=== PATIENT | male | born 1955 | race Caucasian/White ===

== ENCOUNTER 2020-09-06 06:59 | Inpatient (IN) ==
[2020-09-06] MEDS ORDERED: CeFAZolin Syr 2,000MG/20 ML 2,000 MG/20 ML SYRINGE IVPB ONE (07:25)
[2020-09-06] MEDS ORDERED: Ringers Solution, Lactated 1,000 ML IVC SCH ×2 (07:30→08:00)
[2020-09-06] MEDS ORDERED: *HR* Rocuronium Bromide 50 MG/5 ML VIAL ONE (07:42)
[2020-09-06] MEDS ORDERED: *HR* FentaNYL (PF) 100 MCG/2 ML VIAL ONE (07:42)
[2020-09-06] MEDS ORDERED: Ondansetron 4 MG/2 ML VIAL ONE (07:42)
[2020-09-06] MEDS ORDERED: Dexamethasone 4 MG/ML VIAL ONE (07:42)
[2020-09-06] MEDS ORDERED: *HR* Midazolam HCl 2 MG/2 ML VIAL ONE (07:42)
[2020-09-06] MEDS ORDERED: Lidocaine -MPF 2% 2 ML VIAL ONE (07:42)
[2020-09-06] MEDS ORDERED: *HR* Propofol 200 MG/20 ML VIAL IVP ONE (07:42)
[2020-09-06] MEDS ORDERED: *HR* OxyCODONE Immed Rel 5 MG TABLET PO PRN (07:56)
[2020-09-06] MEDS ORDERED: Ondansetron 4 MG/2 ML VIAL IVP PRN ×2 (07:56→11:05)
[2020-09-06] MEDS ORDERED: *HR* HYDROmorphone (PF) 1 MG/ML SYRINGE IVP PRN (07:56)
[2020-09-06] MEDS ORDERED: Acetaminophen IV 1,000 MG/100 ML BAG IVPB ONE (08:08)
[2020-09-06] MEDS ORDERED: Albumin Human 5% 12.5 GM/250 ML IV.SOLN ONE (08:08)
[2020-09-06] MEDS ORDERED: *HR* Succinylcholine 200 MG/10 ML VIAL IVP ONE (08:32)
[2020-09-06] MEDS ORDERED: *HR* HYDROMORPHONE 2 MG/ML VIAL ONE (09:20)
[2020-09-06] MEDS ORDERED: Ketorolac 30 MG/ML VIAL ONE (09:51)
[2020-09-06] MEDS ORDERED: Naloxone 0.4 MG/ML INJ IVP PRN (11:05)
[2020-09-06] MEDS ORDERED: *HR* HYDROcodone/Acet 5/325 mg TABLET PO PRN (11:05)
[2020-09-06] MEDS: Ketorolac 15 MG/ML VIAL IVP SCH ×2 (11:34→17:14)
[2020-09-06] MEDS: 0.9 % Sodium Chloride 1,000 ML IVC SCH (11:34)
[2020-09-06] MEDS: Ipratropium/Albuterol Neb 3 ML IH SCH ×4 (11:58→23:17)
[2020-09-06] MEDS: Gabapentin 300 MG CAPSULE PO SCH ×2 (14:22→20:04)
[2020-09-06] MEDS: *HR* Heparin 5,000 UNIT/ML VIAL SQ SCH ×2 (14:23→21:01)
[2020-09-06] MEDS: Famotidine 20 MG TABLET PO SCH (20:04)
[2020-09-06] MEDS: Sennosides/Docusate Sodium TABLET PO SCH (20:05)
[2020-09-07] MEDS: Ketorolac 15 MG/ML VIAL IVP SCH ×4 (00:30→17:17)
[2020-09-07] MEDS: 0.9 % Sodium Chloride 1,000 ML IVC SCH (00:32)
[2020-09-07] MEDS: Ipratropium/Albuterol Neb 3 ML IH SCH ×6 (03:26→23:35)
[2020-09-07] MEDS: *HR* Heparin 5,000 UNIT/ML VIAL SQ SCH ×3 (05:38→21:05)
[2020-09-07] MEDS: Sennosides/Docusate Sodium TABLET PO SCH ×2 (08:31→21:05)
[2020-09-07] MEDS: Famotidine 20 MG TABLET PO SCH ×2 (08:31→21:04)
[2020-09-07] MEDS: Gabapentin 300 MG CAPSULE PO SCH ×3 (08:31→21:05)
[2020-09-08] MEDS: Ketorolac 15 MG/ML VIAL IVP SCH ×2 (00:04→05:48)
[2020-09-08] MEDS: Ipratropium/Albuterol Neb 3 ML IH SCH ×3 (04:06→11:33)
[2020-09-08] MEDS: *HR* Heparin 5,000 UNIT/ML VIAL SQ SCH (05:47)
[2020-09-08 07:21] VITALS: BP 130/74
[2020-09-08] MEDS: Gabapentin 300 MG CAPSULE PO SCH (08:02)
[2020-09-08] MEDS: Sennosides/Docusate Sodium TABLET PO SCH (08:02)
[2020-09-08] MEDS: Famotidine 20 MG TABLET PO SCH (08:03)
== END 2020-09-08 11:53 | disposition home or self-care (01) | DRG 168 ==
LOC: SAMDAY 06:59 → ICNU 10:54 → 2NNU 20:45
PROVIDERS: ADMIT Thoracic Surgery (Cardiothoracic Vascular Surgery); ATTEND Thoracic Surgery (Cardiothoracic Vascular Surgery)